=== PATIENT | female | born 1995 | race Caucasian/White ===

== ENCOUNTER 2019-02-22 20:35 | Emergency (ER) | payer SELFPAY ==
[~2019-02-22] VITALS: Ht 157.5 cm; Wt 52.2 kg
[~2019-02-22 20:35] MED LIST: AMOX-355 PO; ASPI325T32 PO; ONDA4TAB11 PO; [UNRECOGNIZED DRUG - CODE] PO
[2019-02-22] MEDS ORDERED: KETOROLAC 30 MG/ML VIAL IVP ONE (21:00)
[2019-02-22 21:03] LABS: BASOPHILS % (AUTO) 0 % (0-10); EOSINOPHILS # (AUTO) 0.2 10^3/uL (0.0-0.3); EOSINOPHILS % (AUTO) 3 % (0-10); HEMATOCRIT 40 % (35-52); HEMOGLOBIN 13.6 G/DL (11.5-16.0); LYMPHOCYTES # (AUTO) 2.1 X 10^3 (1.0-4.0); LYMPHOCYTES % (AUTO) 39 % (12-44); MEAN CORPUSCULAR HEMOGLOBIN 29 PG (25-34); MEAN CORPUSCULAR HGB CONC 34 G/DL (32-36); MEAN CORPUSCULAR VOLUME 86 FL (80-99); MEAN PLATELET VOLUME 10.7 FL (7.4-10.4); MONOCYTES # (AUTO) 0.5 X 10^3 (0.0-1.0); MONOCYTES % (AUTO) 9 % (0-12); NEUTROPHILS # (AUTO) 2.7 X 10^3 (1.8-7.8); NEUTROPHILS % (AUTO) 49 % (42-75); PLATELET COUNT 240 10^3/uL (130-400); RED CELL DISTRIBUTION WIDTH 12.7 % (10.0-14.5); WHITE BLOOD COUNT 5.6 10^3/uL (4.3-11.0)
--- NOTE | 2019-02-22 21:06 | ED Abdominal Pain ---
General Chief Complaint: Abdominal/GI Problems Stated Complaint: ABD AND BACK PAIN Source of Information: Patient Exam Limitations: No Limitations History of Present Illness Date Seen by Provider: February 22, 2019 Time Seen by Provider: 20:39 Initial Comments This 23-year-old young lady presents to the emergency room with complaints of fairly sudden onset of left-sided abdominal pain. It started as a cramping waxing and waning in the left upper quadrant. It is now radiating also to her back and throughout the left abdomen. She had some nausea earlier which has now dissipated. Symptoms started about one hour prior to arrival. LMP was February 14-. She is on control. She denies any diarrhea or constipation. Her last bowel movement was today and was normal. She is afebrile. She denies any urinary changes. She has no history of kidney stones. Pain is worse with movement and deep breathing. It is better when lying still. Allergies and Home Medications Allergies Coded Allergies: No Known Drug Allergies (Unverified , 10/17/11) Home Medications Amoxicillin/Potassium Clav 1 Each Tablet, 1 EACH PO BID Prescribed by: PANCHO FONSECA on 08/06/16 1839 Patient Home Medication List Home Medication List Reviewed: Yes Review of Systems Review of Systems Constitutional: no symptoms reported EENTM: No Symptoms Reported Respiratory: No Symptoms Reported Cardiovascular: No Symptoms Reported Gastrointestinal: See HPI Genitourinary: No Symptoms Reported Musculoskeletal: no symptoms reported Skin: no symptoms reported Psychiatric/Neurological: No Symptoms Reported Endocrine: No Symptoms Reported Hematologic/Lymphatic: No Symptoms Reported Past Cuywwbp-Povpop-Sfwdyz Hx Patient Social History Recent Foreign Travel: No Contact w/Someone Who Travel: No Recent Hopitalizations: No Immunizations Up To Date Tetanus Booster (TDap): Less than 5yrs PED Vaccines UTD: Yes Seasonal Allergies Seasonal Allergies: No Past Medical History Surgeries: Yes (oral surgery) Respiratory: No Cardiac: No Neurological: No : No Last Menstrual Period: February 14, 2019 Reproductive Disorders: No Genitourinary: No Gastrointestinal: No Musculoskeletal: No Endocrine: No HEENT: No Cancer: No Psychosocial: No Integumentary: No Physical Exam Vital Signs Vital Signs - First Documented 02/22/19 02/22/19 20:40 22:30 Temp 97.5 Pulse 74 Resp 17 B/P (MAP) 135/88 (104) Pulse Ox 100 O2 Delivery Room Air Capillary Refill : Height/Weight/BMI Height: 5'2" Weight: 110lbs. oz. 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, no motor/sensory deficits, alert, normal mood/affect, oriented x 3 Skin: normal color, warm/dry Progress/Results/Core Measures Results/Orders Lab Results Laboratory Tests Test 02/22/19 20:48 02/22/19 20:55 Range/Units Urine Color YELLOW Urine Clarity VERY CLOUDY H Urine pH 7 5-9 Urine Specific [place] 1.010 L 1.016-1.022 Urine Protein NEGATIVE NEGATIVE Urine Glucose (UA) NEGATIVE NEGATIVE Urine Ketones NEGATIVE NEGATIVE Urine Nitrite NEGATIVE NEGATIVE Urine Bilirubin NEGATIVE NEGATIVE Urine Urobilinogen NORMAL NORMAL MG/DL Urine Leukocyte Esterase 1+ H NEGATIVE Urine RBC (Auto) NEGATIVE NEGATIVE Urine RBC NONE /HPF Urine WBC 0-2 /HPF Urine Squamous Epithelial Cells 2-5 /HPF Urine Crystals PRESENT H /LPF Urine Amorphous Sediment LARGE LIZABETH PHOSPHATE H /LPF Urine Bacteria FEW H /HPF Urine Casts NONE /LPF Urine Mucus SMALL H /LPF Urine Culture Indicated NO White Blood Count 5.6 4.3-11.0 10^3/uL Red Blood Count 4.66 4.35-5.85 10^6/uL Hemoglobin 13.6 11.5-16.0 G/DL Hematocrit 40 35-52 % Mean Corpuscular Volume 86 80-99 FL Mean Corpuscular Hemoglobin 29 25-34 PG Mean Corpuscular Hemoglobin Concent 34 32-36 G/DL Red Cell Distribution Width 12.7 10.0-14.5 % Platelet Count 240 130-400 10^3/uL Mean Platelet Volume 10.7 H 7.4-10.4 FL Neutrophils (%) (Auto) 49 42-75 % Lymphocytes (%) (Auto) 39 12-44 % Monocytes (%) (Auto) 9 0-12 % Eosinophils (%) (Auto) 3 0-10 % Basophils (%) (Auto) 0 0-10 % Neutrophils # (Auto) 2.7 1.8-7.8 X 10^3 Lymphocytes # (Auto) 2.1 1.0-4.0 X 10^3 Monocytes # (Auto) 0.5 0.0-1.0 X 10^3 Eosinophils # (Auto) 0.2 0.0-0.3 10^3/uL Basophils # (Auto) 0.0 0.0-0.1 10^3/uL Sodium Level 142 135-145 MMOL/L Potassium Level 3.6 3.6-5.0 MMOL/L Chloride Level 107 98-107 MMOL/L Carbon Dioxide Level 24 21-32 MMOL/L Anion Gap 11 5-14 MMOL/L Blood Urea Nitrogen 11 7-18 MG/DL Creatinine 0.83 0.60-1.30 MG/DL Estimat Glomerular Filtration Rate > 60 BUN/Creatinine Ratio 13 Glucose Level 101 70-105 MG/DL Calcium Level 10.4 H 8.5-10.1 MG/DL Corrected Calcium 8.5-10.1 MG/DL Total Bilirubin 0.3 0.1-1.0 MG/DL Aspartate Amino Transf (AST/SGOT) 15 5-34 U/L Alanine Aminotransferase (ALT/SGPT) 16 0-55 U/L Alkaline Phosphatase 52 40-136 U/L C-Reactive Protein High Sensitivity 0.11 0.00-0.50 MG/DL Total Protein 7.6 6.4-8.2 GM/DL Albumin 4.7 H 3.2-4.5 GM/DL Lipase 34 8-78 U/L Serum Test, Qualitative NEGATIVE NEGATIVE My Orders Orders - PANCHO CARDONA MD Ua Culture If Indicated (02/22/19 20:39) Cbc With Automated Diff (02/22/19 20:57) Comprehensive Metabolic Panel (02/22/19 20:57) Hs C Reactive Protein (02/22/19 20:57) Hcg,Qualitative Serum (02/22/19 20:57) Lipase (02/22/19 20:57) Ketorolac Injection (Toradol Injection) (02/22/19 21:00) Lidocaine 2% Viscous 15 Ml (Xylocaine Vi (02/22/19 21:45) Antacid Suspension (Mylanta Suspension (02/22/19 21:45) Rx-Ondansetron Po (Rx-Zofran Po) (02/22/19 22:16) Medications Given in ED Current Medications Medications Dose Ordered Sig/Jenaro Route Start Time Stop Time Status Last Admin Dose Admin Al Hydrox/Mg Hydrox/Simethicone 30 ml ONCE ONCE PO 02/22/19 21:45 02/22/19 21:46 DC 02/22/19 21:49 30 ML Ketorolac Tromethamine 15 mg ONCE ONCE IVP 02/22/19 21:00 02/22/19 21:01 DC 02/22/19 21:09 15 MG Lidocaine HCl 15 ml ONCE ONCE PO 02/22/19 21:45 02/22/19 21:46 DC 02/22/19 21:49 15 ML Vital Signs/I&O 02/22/19 02/22/19 20:40 22:30 Temp 97.5 97.5 Pulse 74 79 Resp 17 16 B/P (MAP) 135/88 (104) 104/50 (68) Pulse Ox 100 100 O2 Delivery Room Air Progress Progress Note #1: Time: 21:05 Progress Note Patient was seen and examined. Labs and UA are pending. IV was established and Toradol is being given for pain. Progress Note #2: Time: 22:17 Progress Note Pain improved from 8 or 9 down to about a 5 after Toradol. Pain is further improved by GI cocktail. She especially notes improvement of pain in her back. I discussed risks and benefits of CT imaging for further assessment. Patient wishes to skip the CT at this time which I believe is certainly reasonable. She will conservatively treat her symptoms with dietary changes and antacids for the time being. We discussed return precautions. Departure Impression Primary Impression: Left sided abdominal pain of unknown cause Additional Impression: Nausea Disposition: 01 HOME, SELF-CARE Condition: Improved Departure-Patient Inst. Decision time for Depature: 22:17 Referrals: [facility] (PCP/Family) Primary Care Physician Patient Instructions: Acute Abdomen (Belly Pain), Adult (DC), Gastritis (DC) Add. Discharge Instructions: The exact cause of your abdominal pain is uncertain at this time but may be related to gastritis (inflammation of the stomach lining). Take antacid medication such as omeprazole 20 mg daily and/or Pepcid (famotidine ) 20 mg twice daily for the next 1-2 weeks. Consume only noncarbonated clear liquids this evening. Tomorrow gradually advance your diet with small quantities of bland food as tolerated. Until your pain resolves, avoid the following: Eating large meals, eating close to bedtime, caffeine, carbonation, citrus fruits and juices, chocolate, alcohol , tomato products, mints, NSAID medications such as ibuprofen or naproxen, tobacco products, fatty or greasy foods, spicy foods, or anything else you know irritates your stomach. You may take Tylenol (acetaminophen) up to 650 mg every 6 hours as needed. Tums may be used for additional antacid treatment. Return to care if you have worsening symptoms or your symptoms are not improving with these therapies. It may take several days for your pain to completely resolve if it is related to gastritis. Use the provided Zofran (ondansetron) dissolved under the tongue every 4 hours as needed for nausea or vomiting. All discharge instructions reviewed with patient and/or family. Voiced understanding. PANCHO CARDONA MD February 22, 2019 21:06
[2019-02-22 21:13] LABS: AMORPHOUS SEDIMENT,UR LARGE AMOR PHOSPHATE /LPF; BACTERIA,URINE FEW /HPF; BILIRUBIN,URINE NEGATIVE (NEGATIVE); CLARITY,URINE VERY CLOUDY; COLOR,URINE YELLOW; GLUCOSE, URINE (UA) NEGATIVE (NEGATIVE); KETONES,URINE NEGATIVE (NEGATIVE); LEUKOCYTE ESTERASE ,URINE 1+ (NEGATIVE); NITRITE,URINE NEGATIVE (NEGATIVE); PH,URINE 7 (5-9); PROTEIN,URINE NEGATIVE (NEGATIVE); UROBILINOGEN,URINE NORMAL (NORMAL); WBC,URINE 0-2 /HPF
[2019-02-22 21:31] LABS: ALANINE AMINOTRANSFERASE 16 U/L (0-55); ALBUMIN 4.7 GM/DL (3.2-4.5); ALKALINE PHOSPHATASE 52 U/L (40-136); BILIRUBIN,TOTAL 0.3 MG/DL (0.1-1.0); BUN/CREATININE RATIO 13; CALCIUM 10.4 MG/DL (8.5-10.1); CARBON DIOXIDE 24 MMOL/L (21-32); CHLORIDE 107 MMOL/L (98-107); CREATININE SERUM 0.83 MG/DL (0.60-1.30); GFR ESTIMATED > 60; GLUCOSE 101 MG/DL (70-105); LIPASE 34 U/L (8-78); POTASSIUM 3.6 MMOL/L (3.6-5.0); SODIUM 142 MMOL/L (135-145); TOTAL PROTEIN 7.6 GM/DL (6.4-8.2)
[2019-02-22] MEDS ORDERED: ANTACID SUSP 30 ML UDC (MYLANTA) PO ONE (21:45)
[2019-02-22] MEDS ORDERED: LIDOCAINE 2% VISCOUS 15 ML UDC PO ONE (21:45)
[2019-02-22] MEDS ORDERED: RX-ONDANSETRON 4 MG ODT (ZOFRAN) PPK #4 SL STA (22:16)
[2019-02-22 22:30] VITALS: BP 104/50
== END 2019-02-22 22:30 | disposition home or self-care (01) ==
LOC: EDUNIT# 20:35 → ER 20:36
DX: R10.12 Left upper quadrant pain (principal); R11.0 Nausea
CPT/HCPCS: 36415; 80053; 81000; 83690; 84703; 85025; 86141

== ENCOUNTER 2022-05-14 22:09 | Emergency (ER) | payer OTHER ==
[2022-05-14 22:20] VITALS: BP 119/87
[2022-05-15 00:49] LABS: BASOPHILS % (AUTO) 0 % (0-10); EOSINOPHILS # (AUTO) 0.1 10^3/uL (0.0-0.3); EOSINOPHILS % (AUTO) 1 % (0-10); HEMATOCRIT 42 % (35-52); HEMOGLOBIN 14.3 g/dL (11.5-16.0); LYMPHOCYTES # (AUTO) 2.5 10^3/uL (1.0-4.0); LYMPHOCYTES % (AUTO) 27 % (12-44); MEAN CORPUSCULAR HEMOGLOBIN 29 pg (25-34); MEAN CORPUSCULAR HGB CONC 34 g/dL (32-36); MEAN CORPUSCULAR VOLUME 85 fL (80-99); MEAN PLATELET VOLUME 10.5 fL (9.0-12.2); MONOCYTES # (AUTO) 0.5 10^3/uL (0.0-1.0); MONOCYTES % (AUTO) 5 % (0-12); NEUTROPHILS # (AUTO) 6.4 10^3/uL (1.8-7.8); NEUTROPHILS % (AUTO) 67 % (42-75); PLATELET COUNT 297 10^3/uL (130-400); WHITE BLOOD COUNT 9.5 10^3/uL (4.3-11.0)
[2022-05-15 01:02] LABS: ALBUMIN 4.7 GM/DL (3.2-4.5)
[2022-05-15 01:03] LABS: CHLORIDE 106 MMOL/L (98-107); POTASSIUM 3.5 MMOL/L (3.6-5.0); SODIUM 139 MMOL/L (135-145)
[2022-05-15 01:05] LABS: GLUCOSE 92 MG/DL (70-105)
[2022-05-15 01:06] LABS: CARBON DIOXIDE 22 MMOL/L (21-32)
[2022-05-15 01:07] LABS: BILIRUBIN,TOTAL 0.5 MG/DL (0.1-1.0); ERYTHROCYTE SEDIMENTATION RATE 6 MM/HR (0-20)
[2022-05-15 01:09] LABS: ALKALINE PHOSPHATASE 53 U/L (40-136); CREATININE SERUM 0.74 MG/DL (0.60-1.30); GFR ESTIMATED 116
[2022-05-15 01:10] LABS: BUN/CREATININE RATIO 11
[2022-05-15 01:12] LABS: ALANINE AMINOTRANSFERASE 12 U/L (0-55); MAGNESIUM 2.1 MG/DL (1.6-2.4)
[2022-05-15 01:13] LABS: LIPASE 31 U/L (8-78)
[2022-05-15 01:33] LABS: TSH (THYROID ANALYZER) 3.75 UIU/ML (0.35-4.94)
[2022-05-15] MEDS ORDERED: HYOS0.1283 SL (01:59)
[2022-05-15] MEDS ORDERED: ONDA4TAB11 SL (01:59)
--- NOTE | 2022-05-15 01:59 | ED GI ---
General Chief Complaint: Abdominal/GI Problems Stated Complaint: DIARRHEA/NAUSEA/HEADACHE Nursing Triage Note: pt presents with report of diarrhea and nausea since april 26. reports she has been seen twice and diagnosed with gastritis. reports symptoms have persisted. Source of Information: Patient Exam Limitations: No Limitations Allergies and Home Medications Allergies Coded Allergies: No Known Drug Allergies (Unverified , 10/17/11) Patient Home Medication List Amoxicillin/Potassium Clav (Augmentin 500-125 Tablet) 1 Each Tablet, 1 EACH PO BID Prescribed by: PANCHO FONSECA on 08/06/162158 Tetracycline HCl (Tetracycline HCl) 250 Mg Capsule, 250 MG PO, (Reported) Entered as Reported by: JUANCARLOS CAMPOS on 08/06/162124 Past Mhybwer-Ydpwof-Sbumnl Hx Patient Social History Tobacco Use?: No Substance use?: Yes Substance type: Marijuana Substance frequency: Several times a month Alcohol Use?: Yes Alcohol Frequency: Once in a while Pt feels they are or have been: No Immunizations Up To Date Tetanus Booster (TDap): Less than 5yrs PED Vaccines UTD: Yes Influenza Vaccine Up-to-Date: Yes; Up-to-Date First/Initial COVID19 Vaccinat: unknown date Second COVID19 Vaccination Zheng: unknown date 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 oz. 52.113320zb; 20.12 BMI Method:Stated Progress/Results/Core Measures Results/Orders Lab Results Laboratory Tests Test 05/14/22 22:20 05/15/22 00:42 Range/Units Influenza Type A (RT-PCR) Not Detected Not Detecte Influenza Type B (RT-PCR) Not Detected Not Detecte SARS-CoV-2 RNA (RT-PCR) Not Detected Not Detecte White Blood Count 9.5 4.3-11.0 10^3/uL Red Blood Count 4.92 3.80-5.11 10^6/uL Hemoglobin 14.3 11.5-16.0 g/dL Hematocrit 42 35-52 % Mean Corpuscular Volume 85 80-99 fL Mean Corpuscular Hemoglobin 29 25-34 pg Mean Corpuscular Hemoglobin Concent 34 32-36 g/dL Red Cell Distribution Width 12.8 10.0-14.5 % Platelet Count 297 130-400 10^3/uL Mean Platelet Volume 10.5 9.0-12.2 fL Immature Granulocyte % (Auto) 0 % Neutrophils (%) (Auto) 67 42-75 % Lymphocytes (%) (Auto) 27 12-44 % Monocytes (%) (Auto) 5 0-12 % Eosinophils (%) (Auto) 1 0-10 % Basophils (%) (Auto) 0 0-10 % Neutrophils # (Auto) 6.4 1.8-7.8 10^3/uL Lymphocytes # (Auto) 2.5 1.0-4.0 10^3/uL Monocytes # (Auto) 0.5 0.0-1.0 10^3/uL Eosinophils # (Auto) 0.1 0.0-0.3 10^3/uL Basophils # (Auto) 0.0 0.0-0.1 10^3/uL Immature Granulocyte # (Auto) 0.0 0.0-0.1 10^3/uL Erythrocyte Sedimentation Rate 6 0-20 MM/HR Sodium Level 139 135-145 MMOL/L Potassium Level 3.5 L 3.6-5.0 MMOL/L Chloride Level 106 98-107 MMOL/L Carbon Dioxide Level 22 21-32 MMOL/L Anion Gap 11 5-14 MMOL/L Blood Urea Nitrogen 8 7-18 MG/DL Creatinine 0.74 0.60-1.30 MG/DL Estimat Glomerular Filtration Rate 116 BUN/Creatinine Ratio 11 Glucose Level 92 70-105 MG/DL Calcium Level 10.0 8.5-10.1 MG/DL Corrected Calcium 8.5-10.1 MG/DL Magnesium Level 2.1 1.6-2.4 MG/DL Total Bilirubin 0.5 0.1-1.0 MG/DL Aspartate Amino Transf (AST/SGOT) 13 5-34 U/L Alanine Aminotransferase (ALT/SGPT) 12 0-55 U/L Alkaline Phosphatase 53 40-136 U/L C-Reactive Protein High Sensitivity 0.06 0.00-0.50 MG/DL Total Protein 8.0 6.4-8.2 GM/DL Albumin 4.7 H 3.2-4.5 GM/DL Lipase 31 8-78 U/L TSH [place] Testing 3.75 0.35-4.94 UIU/ML My Orders Orders - PANCHO CARDONA MD Covid 19 Inhouse Test (05/14/22 22:17) Influenza A And B By Pcr (05/14/22 22:17) Urine Bedside (05/14/22 22:17) Cbc With Automated Diff (05/15/22 00:27) Comprehensive Metabolic Panel (05/15/22 00:27) Hs C Reactive Protein (05/15/22 00:27) Lipase (05/15/22 00:27) Magnesium (05/15/22 00:27) Thyroid Analyzer (05/15/22 00:27) Erythrocyte Sedimentation Rate (05/15/22 00:27) Ed Iv/Invasive Line Start (05/15/22 00:27) Helicobacter Pylori Fiordaliza Igg (05/15/22 00:27) Stool Culture (05/15/22 00:27) Fecal Wbc (05/15/22 00:27) Vital Signs/I&O 05/14/22 05/14/22 22:20 23:02 Pulse 71 93 Resp 18 18 B/P (MAP) 119/87 (98) 114/69 Pulse Ox 99 98 O2 Delivery Room Air Blood Pressure Mean: 84 Departure Impression Primary Impression: Abdominal pain Qualified Codes: R10.84 - Generalized abdominal pain Additional Impressions: Diarrhea Qualified Codes: R19.7 - Diarrhea, unspecified Nausea alone Disposition: HOME, SELF-CARE Condition: Stable Admissions Decision to Admit/Date: May 14, 2022 Time/Decision to Admit Time: 22:17 Departure-Patient Inst. Decision time for Depature: 01:55 Referrals: [facility] (PCP/Family) Primary Care Physician Patient Instructions: Abdominal Pain, Adult ED, Diarrhea in Adolescents and Adults Add. Discharge Instructions: Drink plenty of clear liquids to stay well-hydrated. Use the Zofran (ondansetron) as prescribed for nausea and vomiting. Use Levsin (hyoscyamine) as prescribed for bowel cramping and diarrhea. You may trial abstinence from various common triggers of abdominal pain and diarrhea such as gluten or dairy products. A 2-week trial should be a sufficient initial trial. Keep a food diary to log what foods, activities, and situation seem to make your symptoms worse. Follow-up with a primary care provider as soon as possible. Further work-up directed by your primary care provider is necessary and may include gallbladder ultrasound, endoscopy, further blood work, etc. An H. pylori test was ordered from the ER but will not result for several days. Have your primary care provider review these results. Bring a stool specimen to the hospital as soon as you are able to produce one for stool cultures. Return to the ER if you have worsening symptoms. All discharge instructions reviewed with patient and/or family. Voiced under standing. Scripts Ondansetron (Ondansetron Odt) 4 Mg Tab.rapdis 4 MG SL Q4H, #10 TAB 1 Refill Prov: PANCHO CARDONA MD 05/15/22 Hyoscyamine Sulfate (Levsin-Sl) 0.125 Mg Tab.subl 0.125 MG SL Q4H PRN for CRAMPS, #10 TAB 1 Refill Prov: PANCHO CARDONA MD 05/15/22 PANCHO CARDONA MD May 15, 2022 01:59
== END 2022-05-15 02:12 | disposition home or self-care (01) ==
LOC: EDUNIT# 22:09 → ER 22:12
DX: R19.7 Diarrhea, unspecified (principal); R11.0 Nausea; R10.9 Unspecified abdominal pain; Z87.19 Personal history of other diseases of the digestive system; Z20.822 Contact with and (suspected) exposure to COVID-19
CPT/HCPCS: 36415; 80053; 83690; 83735; 84443; 84703; 85025; 85652; 86141; 86677; 87636